=== PATIENT | female | born 1975 | race Two or more races ===

== ENCOUNTER 2017-03-03 21:57 | Inpatient (IN) | payer MEDICARE, OTHER ==
--- NOTE | 2017-03-03 23:45 | NUR ---
ADMISSION NOTES PATIENT RECEIVED FROM [facility], IN A GURNEY, ACCOMPANIED BY 2 EMT'S WITH C/O EPIGASTRIC PAIN 4/10 NAUSEA & VOMITING, N/V INCREASES WHILE REPOSITIONING IN BED OR AMBULATING. A & O X 4. NOTED WITH VOMITING/NAUSEA UPON ADMISSION & C/O EPIGASTRIC PAIN. IV ACCESS TO RAC # 20, INTACT PATENT, SL. UNABLE TO TOLERATE PO INTAKE AT THIS TIME. BODY ASSESSMENT DONE & DOCUMENTED. AMBULATORY TOLERATED. CONTINENT OF B & BM, LBM ON 03/02/17. H/O AV SHUNT TO [facility], REMOVED IN 2014, HAS OLD HEALED SCAR TO RUE FROM AV SHUNT SITE. BS CHECKED, 259MG/DL. V/S CHECKED & INFORMED MD. INVENTORY LIST COMPLETED. BED IN LOW LOCKED POSITION. CALL LIGHT WITHIN REACH. OBSERVING CLOSELY.
[2017-03-04] MEDS ORDERED: INSU100V27 SQ (00:24)
[2017-03-04] MEDS ORDERED: INSU100V7 SQ (00:24)
[2017-03-04] MEDS ORDERED: PANT40TA2 PO (00:24)
[2017-03-04] MEDS ORDERED: METO100T3 PO (00:24)
--- NOTE | 2017-03-04 00:30 | NUR ---
MS RN NOTES PAGED DR. OSUNA REGARDING PATIENTS CURRENT HEALTH CONDITION. PATIENT HAS EPISODES OF VOMITING, NOT TOLERATING PO INTAKE/MEDS. WAITING FOR MD TO CALL BACK.
--- NOTE | 2017-03-04 00:32 | NUR ---
MS RN NOTES DR. OSUNA CALLED BACK, REVIEWED PATIENTS HEALTH CONDITION. PER MD, WILL REVIEW THE MEDS & PLACE NEW ORDERS. WILL FOLLOW UP ON NEW ORDERS.
[2017-03-04] MEDS ORDERED: INSULIN REGULAR, HUMAN 100 UNIT/ML 3 ML VIAL SQ PRN (01:00)
[2017-03-04] MEDS ORDERED: DEXTROSE 50%-WATER 50 ML DISP.SYRIN IV PRN ×2 (01:00→10:00)
[2017-03-04] MEDS ORDERED: *INSULIN REGULAR(HUMULIN R)HUM 100 UNIT/ML VIAL SQ PRN (01:00)
[2017-03-04] MEDS ORDERED: hydrALAZINE HCL IV 20 MG VIAL IV PRN (01:00)
[2017-03-04] MEDS ORDERED: Z GUARD REMEDY 2 OZ OINT TP PRN (01:00)
[2017-03-04] MEDS ORDERED: ONDANSETRON HCL/PF 4 MG/2 ML VIAL ONE (01:20)
[2017-03-04] MEDS: ONDANSETRON HCL/PF 4 MG/2 ML VIAL IVP PRN ×4 (01:22→21:56)
--- NOTE | 2017-03-04 01:24 | NUR ---
PRN ZOFRAN GIVEN PATIENT HAS BEEN HAVING NAUSEA & VOMITING, HAD 3 EPISODES OF VOMITING AFTER ADMISSION. PRN ZOFRAN GIVEN. WILL REASSESS. MONITORING CLOSELY. PATIENT IS UNABLE TO TOLERATE PO INTAKE, MD MADE AWARE.
--- NOTE | 2017-03-04 01:26 | NUR ---
RN NOTES: CONTACTED DR OSUNA REGARDING PT'S VS, PT'S BP STILL ELEVATED. LATEST BP 170/102 HR 98, RR19, ON RA 98%, PER MD TO TRANSFER PT TO TELEMETRY FOR FURTHER MONITORING, ONCE IN TELEMETRY UNIT GIVE IV APRESOLINE AND MONITOR PT'S BP. CONTACTED HUYEN CHURCH, PT WILL GO TO 322-2
--- NOTE | 2017-03-04 01:50 | NUR ---
TRANSFER: CONNECTED PT TO MONITOR, INFORM PT ABOUT THE NEED FOR TRANSFER, PT WILL GO TO 322-1 TELEMETRY, ALL BELONGINGS SENT WITH THE PT UPON TRANSFER, BP STILL ELEVATED, REPORT GIVEN BY HUYEN ROCKWELL TO HUYEN WINKLER. TRANSPORTED PT VIA ACLS PROTOCOL. PLACED ON ROOM 322-1, AND CONNECTED PT TO TELE MONITORING/BOX. ENDORSED PT FOR CONTINUITY OF CARE
[2017-03-04 02:00] VITALS: BP 127/89
--- NOTE | 2017-03-04 02:00 | NUR ---
RN NOTES RECEIVED PT FROM MS 2, PT ALERT AND ORIENTED X4, KEPT HER EYES CLOSED BECAUSE OF DIZZINESS. DENIES ANY PAIN AND NAUSEA AT THIS TIME. VITAL SIGNS STABLE BP 127/89 HR 87 RR 18 TEMP 98.2 O2 SAT 97% AT ROOM AIR. ATTACHED TO TELE MONITOR, WHICH READS NORMAL SINUS RHYTHM WITH HEART RATE AT 85. KEPT PT COMFORTABLE AND ATTENDED. WILL CONTINUE TO MONITOR PT.
[2017-03-04 04:00] VITALS: BP 135/88
[2017-03-04] MEDS ORDERED: PANTOPRAZOLE 40 MG VIAL IV SCH (04:00)
[2017-03-04] MEDS ORDERED: PANTOPRAZOLE 40 MG VIAL ONE (04:15)
--- NOTE | 2017-03-04 04:17 | NUR ---
RN NOTES PT COMPLAINS OF EPIGASTRIC PAIN, PROTONIX 20 MG GIVEN IV ORDERED BY DR OSUNA. WILL CONTINUE TO MONITOR PT.
--- NOTE | 2017-03-04 06:53 | NUR ---
RN NOTES BLOOD SUGAR CHECKED 271 MG/DL, NO INSULIN COVERAGE GIVEN PT IS NPO AND PT REFUSED INSULIN. WILL CONTINUE TO MONITOR.
[2017-03-04 07:06] VITALS: BP 129/78
[2017-03-04] MEDS ORDERED: BLOOD SUGAR DIAGNOSTIC 1 EACH STRIP VI SCH (07:30)
--- NOTE | 2017-03-04 07:35 | NUR ---
RN NOTES PT AWAKE, HOB ELEVATED, RESTING AT THIS TIME. VITAL SIGNS STABLE, BP WNL. STILL WITH EPISODES OF VOMITING. EPIGASTRIC PAIN AT TOLERABLE LEVEL AT THIS TIME. ALL NEEDS ATTENDED. WILL ENDORSE TO MORNING RN FOR CONTINUITY OF CARE.
--- NOTE | 2017-03-04 08:03 | NUR ---
MS RN NOTES PATIENT IS ALERT AND ORIENTED. BEDSIDE RAILS ARE UP X2. BED IS LOCKED AND LOWERED. WILL CONTINUE TO MONITOR.
[2017-03-04] MEDS: IV NS 0.9% 1,000 ML BAG IV SCH (09:28)
[2017-03-04] MEDS ORDERED: METOCLOPRAMIDE HCL 10 MG/2 ML VIAL IV PRN (09:30)
--- NOTE | 2017-03-04 10:49 | NUR ---
CALLED DR DIAZ AND RELAYED THE MRCP RESULTS WITH ORDER FOR CHOLECYSTECTOMY PROCEDURE POSSIBLY FOR TONIGHT OR TOMORROW AM DEPENDING ON THE AVAILABILITY OF O.R.. DR DIAZ WILL CALL ME FOR THE UPDATE.RELAYED MRCP RESULTS TO THE PT AND MADE HIM AWARE DR DIAZ'S PLAN AND THE PT STATED THAT HE WILL DECIDE ABOUT IT. Addendum: 03/04/17 at 1105 by PANCHO MCFARLAND RN PLS IGNORE ABOVE NOTES,DOCUMENTED ON THE WRONG PT.
[2017-03-04] MEDS: HYDROMORPHONE 1 MG/1 ML DISP.SYRIN IV PRN ×4 (10:53→23:58)
[2017-03-04] MEDS: BLOOD SUGAR DIAGNOSTIC 1 EACH STRIP IN SCH ×3 (12:50→21:49)
[2017-03-04 16:00] VITALS: BP 130/88
[2017-03-04] MEDS: INSULIN REGULAR, HUMAN 100 UNIT/ML 3 ML VIAL SQ PRN (18:16)
--- NOTE | 2017-03-04 19:15 | NUR ---
MS RN OPENING NOTES: RECEIVED PT AND IS AWAKE WITH 3 FAMILY MEMBERS AT BEDSIDE. PT IS A/OX4. PT REPORTING OF FEELING NAUSEOUS. PT ON ROOM AIR AND TOLERATING WELL. CALL LIGHT WITHIN PT'S REACH. BED KEPT IN LOW, LOCKED POSITION, AND SIDE RAILS X 2 UP. PT HAS IV ON R AC #20G AND IS BEING INFUSED WITH NS AT 75ML/HR. WILL CONTINUE TO MONITOR PT.
--- NOTE | 2017-03-04 19:23 | NUR ---
MS RN CLOSING NOTES PATIENT IS ALERT AND ORIENTED. BESIDE RAILS ARE UP X2. BED IS LOCKED AND LOWERED. WILL ENDORSE CARE TO TILE MACHINE OPERATOR NURSE FOR LISA.
[2017-03-04 20:00] VITALS: BP 125/93
[2017-03-04] MEDS: INSULIN DETEMIR 100 UNIT/ML CARTRIDGE SQ SCH (20:08)
[2017-03-04] MEDS: *INSULIN REGULAR(HUMULIN R)HUM 100 UNIT/ML VIAL SQ PRN (21:53)
[2017-03-05] MEDS: IV NS 0.9% 1,000 ML BAG IV SCH (03:13)
[2017-03-05 06:10] VITALS: BP 132/83
[2017-03-05] MEDS: HYDROMORPHONE 1 MG/1 ML DISP.SYRIN IV PRN ×4 (06:12→22:19)
[2017-03-05] MEDS: BLOOD SUGAR DIAGNOSTIC 1 EACH STRIP IN SCH ×4 (06:13→22:00)
[2017-03-05] MEDS ORDERED: PANTOPRAZOLE 40 MG VIAL IV SCH (07:00)
--- NOTE | 2017-03-05 07:00 | NUR ---
ms rn notes: insulin was withheld d/t pt being npo and going for procedure.
--- NOTE | 2017-03-05 07:00 | NUR ---
MS RN NOTES: URINE COLLECTED FOR TEST. PLACED IN FRIDGE. WILL ENDORSE TO AM NURSE TO CALL LAB FOR W[employer] TECHNICAL OFFICER.
--- NOTE | 2017-03-05 07:10 | NUR ---
PATIENT IS ALERT. PATIENT IS IN NO APPARENT DISTRESS. BEDSIDE RAILS ARE UP X2. BED IS LOCKED AND LOWERED. PATIENT WILL BE TAKEN TO OR FOR EGD PROCEDURE. WILL CONTINUE TO MONITOR.
--- NOTE | 2017-03-05 07:15 | NUR ---
MS RN NOTES: PT TAKEN DOWN TO OR. PT REMOVED EARRINGS AND LEFT IT IN TOP CHAIR SPRINGER HER BLACK BAG.
--- NOTE | 2017-03-05 07:15 | NUR ---
PATIENT WAS TAKEN DOWN TO OR FOR EGD PROCEDURE.
[2017-03-05 07:16] LABS: EOSINOPHILS # (AUTO) 0.1 /CMM (0.0-0.7); EOSINOPHILS % (AUTO) 0.4 % (0.0-6.0); HEMATOCRIT 40 % (33-45); HEMOGLOBIN 13.7 g/dL (11.5-14.8); LYMPHOCYTES # (AUTO) 1.2 /CMM (0.8-4.8); LYMPHOCYTES % (AUTO) 8.8 % (20.0-44.0); MEAN CORPUSCULAR HEMOGLOBIN 29 PG (26.0-33.0); MEAN CORPUSCULAR HGB CONC 34 g/dl (31.0-36.0); MEAN CORPUSCULAR VOLUME 85 fL (82-100); MONOCYTES # (AUTO) 0.9 /CMM (0.1-1.30); MONOCYTES % (AUTO) 6.8 % (2.0-12.0); NEUTROPHILS # (AUTO) 11.2 /CMM (1.8-8.9); PLATELET COUNT (AUTO) 259 /CMM (150-450); RDW COEFFICIENT OF VARIATION 13.5 (11.5-15.0); RED BLOOD CELL COUNT(AUTO) 4.76 MIL/uL (4.0-5.2); WHITE BLOOD COUNT (AUTO) 13.3 K/uL (4.3-11.0)
--- NOTE | 2017-03-05 07:25 | NUR ---
MS RN CLOSING NOTES: ALL NEEDS WERE ATTENDED AND ANTICIPATED FOR. PT WAS TAKEN DOWN TO OR FOR PROCEDURE. PT WAS A/OX4. PT ON ROOM AIR AND TOLERATING WELL. CALL LIGHT WITHIN PT'S REACH. BED KEPT IN LOW, LOCKED POSITION, AND SIDE RAILS X 2 UP. PT HAS IV ON R AC #20G AND IS PATENT AND INTACT. INFORMED AM NURSES THAT EARRINGS ARE IN TOP PRICING MANAGER HER BLACK BAG. ENDORSED TO AM NURSE FOR LISA.
[2017-03-05] MEDS ORDERED: ROCURONIUM BROMIDE 50 MG/5 ML ONE (07:32)
[2017-03-05] MEDS ORDERED: SCOPOLAMINE HBR 1 EA PATCH.TD72 TD ONE (07:32)
[2017-03-05] MEDS ORDERED: SUCCINYLCHOLINE CHLORIDE 20 MG/ML VIAL ONE (07:32)
[2017-03-05 07:41] LABS: CALCIUM, SERUM 8.4 mg/dL (8.5-10.1); MAGNESIUM 1.7 mg/dL (1.8-2.4); PHOSPHORUS 1.9 mg/dL (2.5-4.9); POTASSIUM 3.5 mmol/L (3.5-5.1)
[2017-03-05 08:00] VITALS: BP 123/83
[2017-03-05] MEDS: INSULIN DETEMIR 100 UNIT/ML CARTRIDGE SQ SCH ×2 (09:22→21:00)
[2017-03-05] MEDS: ONDANSETRON HCL/PF 4 MG/2 ML VIAL IVP PRN ×3 (09:26→22:42)
[2017-03-05] MEDS ORDERED: SCOPOLAMINE HBR 1 EA PATCH.TD72 TD SCH (09:30)
[2017-03-05] MEDS: Magnesium 1GM/D5W 100ML PREMIX 100 ML IV SCH ×2 (10:54→12:09)
[2017-03-05] MEDS: METOCLOPRAMIDE HCL 10 MG TABLET PO SCH ×2 (11:35→17:42)
[2017-03-05] MEDS: INSULIN REGULAR, HUMAN 100 UNIT/ML 3 ML VIAL SQ PRN ×2 (12:13→13:04)
[2017-03-05] MEDS ORDERED: K PHOS NEUTRAL 250 MG TABLET PO ONE (13:30)
[2017-03-05 16:00] VITALS: BP 110/77
[2017-03-05] MEDS: PANTOPRAZOLE 40 MG VIAL IV SCH (17:41)
--- NOTE | 2017-03-05 18:43 | NUR ---
MS RN CLOSING NOTES PATIENT IS ALERT. PATIENT IS RESTING IN BED. CALL LIGHT IS WITHIN REACH. BED IS LOCKED AND LOWERED. SIDE RAILS ARE UP X 2. WILL ENDORSE CARE TO SILVERLIGHT DEVELOPER NURSE FOR LISA.
--- NOTE | 2017-03-05 19:30 | NUR ---
MS RN OPENING NOTES: PATIENT IN BED, AOX4, ON ROOM AIR, BREATHING EVEN AND UNLABORED. APPEARS CALM AND IN NO DISTRESS. DENIES SEVERE PAIN AT THIS TIME. PATENT DOES COMPLAIN THAT SHE HAS NOT BEEN ABLE TO SWALLOW MUCH FULL LIQS, BUT WAS ABLE TO TOLERATE THE BROTH GIVEN FOR DINNER. DENIES NAUSEA OR VOMITING AT THIS TIME. PIV OVER RAC G22 INTACT AND INFUSING WELL WITH NS RUNNING AT 75 ML/HR. PROVIDED FOR COMFORT AND SAFETY. WILL CONT TO MONITOR.
[2017-03-05 20:00] VITALS: BP 115/87
[2017-03-05] MEDS: *INSULIN REGULAR(HUMULIN R)HUM 100 UNIT/ML VIAL SQ PRN ×2 (22:06→22:10)
--- NOTE | 2017-03-05 22:10 | NUR ---
RN NOTES: PATIENT REFUSED LEVEMIR 40 UNITS AND REGULAR INSULIN 2 UNITS PER SCALE, STATING THAT SHE WILL NOT BE ABLE TO TOLERATE ANY FULL LIQ SNACK TONIGHT. RISKS EXPLAINED, PATIENT STILL REFUSES. WILL CONT TO MONITOR.
[2017-03-06] MEDS: METOCLOPRAMIDE HCL 10 MG TABLET PO SCH ×4 (00:10→17:25)
[2017-03-06] MEDS: IV NS 0.9% 1,000 ML BAG IV SCH (00:13)
[2017-03-06] MEDS: BLOOD SUGAR DIAGNOSTIC 1 EACH STRIP IN SCH ×3 (06:03→17:13)
[2017-03-06 06:59] LABS: CALCIUM, SERUM 8.2 mg/dL (8.5-10.1); CREATININE 0.7 mg/dL (0.6-1.3); MAGNESIUM 2.1 mg/dL (1.8-2.4); PHOSPHORUS 2.2 mg/dL (2.5-4.9); POTASSIUM 3.1 mmol/L (3.5-5.1)
--- NOTE | 2017-03-06 07:03 | NUR ---
MS RN CLOSING NOTES: PATIENT IN BED, AOX4, ON ROOM AIR, BREATHING EVEN AND UNLABORED. APPEARS CALM AND IN NO DISTRESS. NO NAUSEA OR VOMITING NOTED THROUGH SHIFT. WAS BALE TO SLEEP WELL. PIV OVER RAC G22 INTACT AND INFUSING WELL WITH NS RUNNING AT 75 ML/HR. BLOOD SUGAR CHECKED THIS AM AT 118 MG/DL. DUE MEDS GIVEN. PROVIDED FOR COMFORT AND SAFETY. BED IN LOWEST NAD LOCKED POSITION, SIDERAILS UPX2. WILL ENDORSE TO AM RN FOR LISA.
--- NOTE | 2017-03-06 07:05 | NUR ---
RN NOTES: PATIENT RESTING IN BED. NONLABORED BREATHING ON ROOM AIR. IV SITE PATENT AND INTACT. PATIENT DENIES PAIN AT THE MOMENT. BED IN LOWEST LOCKED POSITION. CALL LIGHT WITHIN REACH. WILL CONTINUE TO MONITOR
[2017-03-06 08:00] VITALS: BP 138/98
[2017-03-06] MEDS: HYDROMORPHONE 1 MG/1 ML DISP.SYRIN IV PRN ×2 (09:09→16:49)
[2017-03-06] MEDS ORDERED: POTASSIUM CHLORIDE 20 MEQ TAB.PRT.SR PO ONE (09:30)
[2017-03-06] MEDS: PANTOPRAZOLE 40 MG VIAL IV SCH ×2 (09:44→17:18)
[2017-03-06] MEDS: INSULIN DETEMIR 100 UNIT/ML CARTRIDGE SQ SCH (09:52)
[2017-03-06] MEDS ORDERED: K PHOS NEUTRAL 250 MG TABLET PO ONE (11:30)
[2017-03-06] MEDS: INSULIN REGULAR, HUMAN 100 UNIT/ML 3 ML VIAL SQ PRN ×2 (12:16→17:16)
[2017-03-06] MEDS ORDERED: MUPIROCIN OINT 2% 22 GM TUBE SCH (15:30)
[2017-03-06 16:00] VITALS: BP 128/89
--- NOTE | 2017-03-06 18:00 | NUR ---
RN NOTES: PATIENT AOX 4. PATIENT DISCHARGED PER DOCTORS ORDERS. PATIENT STABLE. VS WNL. PATIENT DENIES PAIN AT THE MOMENT. PATIENT EDUCATED ON EXISTCARE INSTRUCTIONS AND GIVEN PRESCRIPTIONS. PATIENT VERBALIZED UNDERSTANDING OF MEDICATIONS AND DOCTOR'S ORDERS. NARES SWAB CAME POSITIVE FOR MRSA DURING THE DAY. BACTROBAN WAS ORDERED AND APPLIED. PATIENT WAS EDUCATED ON THE USAGE OF IT. PATIENT VERBALIZED UNDERSTANDING OF USAGE AND VERBALIZED AVAILABILITY OF MEDICATION TO HER. DURING SHIFT, PATIENT TOLERATED FULL LIQUIDS. NO NAUSEA OR VOMITTING NOTED. PATIENT ALSO ATE PIECES OF BURRITO WITH DAUGHTER AROUND 1700. PATIENT TOLERATED IT WELL. SKIN PICTURES IN CHART. IV TAKEN OUT. VALUABLES GIVEN. PATIENT STATED RECEIVING FLU SHOT THIS SEASON. PATIENT LEFT WITH SISTER AND DAUGHTER. PATIENT WAS AMBULATING WELL.
== END 2017-03-06 17:45 | disposition home or self-care (01) | DRG 391 ==
LOC: MEDSG2 23:31 → MED 03-04 01:59
PROVIDERS: ADMIT Family Medicine; ATTEND Family Medicine
PROC: 0DB58ZX Excision of Esophagus, Via Natural or Artificial Opening Endoscopic, Diagnostic (ICD-10-PCS; 2017-03-05)
PROC: 0DB68ZZ Excision of Stomach, Via Natural or Artificial Opening Endoscopic (ICD-10-PCS; 2017-03-05)
PROC: 0DB98ZX Excision of Duodenum, Via Natural or Artificial Opening Endoscopic, Diagnostic (ICD-10-PCS; 2017-03-05)
PROC: 0DB68ZX Excision of Stomach, Via Natural or Artificial Opening Endoscopic, Diagnostic (ICD-10-PCS; principal; 2017-03-05 07:40)
DX: K29.70 Gastritis, unspecified, without bleeding (principal); K22.6 Gastro-esophageal laceration-hemorrhage syndrome; E11.21 Type 2 diabetes mellitus with diabetic nephropathy; K31.84 Gastroparesis; E11.43 Type 2 diabetes mellitus with diabetic autonomic (poly)neuropathy; Z94.0 Kidney transplant status; E11.22 Type 2 diabetes mellitus with diabetic chronic kidney disease; E86.0 Dehydration; N18.9 Chronic kidney disease, unspecified; K20.9 Esophagitis, unspecified; K31.7 Polyp of stomach and duodenum; Z79.4 Long term (current) use of insulin
CPT/HCPCS: 36415; 74150-TC; 80048-TC; 80061-TC; 82962-TC; 83735-TC; 84100-TC; 84703-TC; 85025-TC; 87081-TC; 88305-TC; 88313-TC; 88342; C9113; J0330; J1170; J1815; J2405; J2704; J2765; J3475; J3490; J7030; J8597